=== PATIENT | female | born 1980 | race Caucasian/White ===

== ENCOUNTER 2020-04-15 13:30 | Emergency (ER) | payer BC ==
[~2020-04-15] VITALS: Ht 160 cm; Wt 72.1 kg
[2020-04-15 13:53] VITALS: Ht 160 cm; Wt 72.1 kg
[2020-04-15 16:25] VITALS: BP 167/95
== END 2020-04-15 16:25 | disposition home or self-care (01) ==
LOC: ED 13:30
DX: S53.105A Unspecified dislocation of left ulnohumeral joint, initial encounter (principal); Y04.2XXA Assault by strike against or bumped into by another person, initial encounter; Y93.89 Activity, other specified; Y92.59 Other trade areas as the place of occurrence of the external cause; Y99.8 Other external cause status
CPT/HCPCS: Q0092

== ENCOUNTER 2020-04-21 09:10 | Emergency (ER) | payer BC ==
[~2020-04-21] VITALS: Ht 160 cm; Wt 72.1 kg
[2020-04-21 09:16] VITALS: Ht 160 cm; Wt 72.1 kg
[2020-04-21 12:46] VITALS: BP 135/79
== END 2020-04-21 12:46 | disposition home or self-care (01) ==
LOC: ED 09:10
DX: H10.31 Unspecified acute conjunctivitis, right eye (principal); S53.105A Unspecified dislocation of left ulnohumeral joint, initial encounter; S09.8XXA Other specified injuries of head, initial encounter; X58.XXXA Exposure to other specified factors, initial encounter; Y93.89 Activity, other specified; Y92.89 Other specified places as the place of occurrence of the external cause; Y99.8 Other external cause status
CPT/HCPCS: Q0092

== ENCOUNTER 2020-07-15 15:56 | Emergency (ER) | payer MEDICAID ==
[~2020-07-15] VITALS: Ht 157.5 cm; Wt 73.5 kg
[2020-07-15 16:03] VITALS: Ht 157.5 cm; Wt 73.5 kg
[2020-07-15 18:13] VITALS: BP 130/91
== END 2020-07-15 18:13 | disposition home or self-care (01) ==
LOC: ED 15:56
DX: L50.9 Urticaria, unspecified (principal)

== ENCOUNTER 2020-09-11 06:28 | Emergency (ER) | payer OTHER ==
[~2020-09-11] VITALS: Ht 157.5 cm; Wt 79.4 kg
[2020-09-11 06:40] VITALS: Ht 157.5 cm; Wt 79.4 kg
[2020-09-11] MEDS ORDERED: IBU600 M2 PO (11:02)
[2020-09-11] MEDS ORDERED: HORIZANT300 MG PO (11:02)
[2020-09-11 11:16] VITALS: BP 151/100
== END 2020-09-11 11:16 | disposition home or self-care (01) ==
LOC: ED 06:28
DX: M19.022 Primary osteoarthritis, left elbow (principal)

== ENCOUNTER 2020-09-18 19:03 | Emergency (ER) | payer OTHER ==
[~2020-09-18] VITALS: Ht 157.5 cm; Wt 80.3 kg
[~2020-09-18 19:03] MED LIST: HORIZANT300 MG PO; IBU600 M2 PO
[2020-09-18 19:29] VITALS: Ht 157.5 cm; Wt 80.3 kg
[2020-09-18 20:46] VITALS: BP 148/84
== END 2020-09-18 21:27 | disposition home or self-care (01) ==
LOC: ED 19:03
DX: M79.671 Pain in right foot (principal); M79.672 Pain in left foot; M25.512 Pain in left shoulder; R21 Rash and other nonspecific skin eruption; I10 Essential (primary) hypertension
CPT/HCPCS: Q0163